=== PATIENT | female | born 1980 | race Caucasian/White ===

== ENCOUNTER 2019-05-23 15:59 | Emergency (ER) | payer BC ==
[~2019-05-23] VITALS: Ht 172.7 cm; Wt 53.7 kg
--- NOTE | 2019-05-23 16:41 | NUR ---
pt is 38 yo female needs medical clearance for detox, has bed open at [facility], family will take pt directly to [facility], pt said she is a binge drinker, last drink was yesterday, pt also has rt black eye, said she fell down yesterday and hit face on wood, no LOC, no n/v, remembers event, no trauma noted to rt eye other than bruise around eye, no swelling, able to track well,
[2019-05-23] MEDS ORDERED: ondansetron 4mg rapidly disintigrating tab PO ONE (17:10)
--- NOTE | 2019-05-23 17:17 | NUR ---
PT VOMITED, [facility] DEL ANGEL AWARE, AT BEDSIDE TO EVALUATED PT
[2019-05-23] MEDS ORDERED: LORazepam 1 MG tablet PO ONE (17:20)
--- NOTE | 2019-05-23 17:26 | NUR ---
PT HAS BEEN SIPPING WATER, ELLE WELL, NO N/V
--- NOTE | 2019-05-23 18:04 | NUR ---
pt back from [place]
[2019-05-23 19:19] VITALS: BP 150/71
== END 2019-05-23 19:20 | disposition home or self-care (01) ==
LOC: ER 16:00
DX: S00.11XA Contusion of right eyelid and periocular area, initial encounter (principal); F10.239 Alcohol dependence with withdrawal, unspecified; G40.909 Epilepsy, unspecified, not intractable, without status epilepticus; Z88.8 Allergy status to other drugs, medicaments and biological substances; W10.8XXA Fall (on) (from) other stairs and steps, initial encounter; Y93.89 Activity, other specified; Y92.89 Other specified places as the place of occurrence of the external cause; Y99.8 Other external cause status
CPT/HCPCS: 70450; 99284; J2405